=== PATIENT | female | born 1950 | race Two or more races ===

== ENCOUNTER 2017-12-10 09:52 | Emergency (ER) | payer MEDICARE, MEDICAID ==
[2017-12-10] MEDS: IPRATRPIUM/ALBUTEROL 0.5/2.5MG 3 ML NEBU. NEB ×2 (10:34)
[2017-12-10 10:42] LABS: ADD MAN DIFF? NO
[2017-12-10 10:46] LABS: BASO # 0.1 x10^3/uL (0.0-0.2); BASO % 1 % (0-3); EOS # 0.4 x10^3/uL (0.0-0.7); EOS % 4 % (0-3); HEMATOCRIT 41.2 % (36.0-47.0); HEMOGLOBIN 13.6 g/dL (12.0-15.5); LYMPH # 2.4 x10^3/uL (1.0-4.8); LYMPH % 26 % (24-48); MEAN CORPUSCULAR HEMOGLOBIN 30 pg (25-35); MEAN CORPUSCULAR HGB CONC 33 g/dL (31-37); MEAN CORPUSCULAR VOLUME 92 fL (79-100); MONO # 0.6 x10^3/uL (0.0-1.1); MONO % 7 % (0-9); NEUT # 5.9 x10^3uL (1.8-7.7); NEUT % 63 % (31-73); PLATELET COUNT 283 x10^3/uL (140-400); RED BLOOD COUNT 4.47 x10^6/uL (3.50-5.40); RED CELL DISTRIBUTION WIDTH 13.4 % (11.5-14.5); WHITE BLOOD COUNT 9.4 x10^3/uL (4.0-11.0)
[2017-12-10 11:04] LABS: INFLUENZA A PATIENT NEGATIVE (NEGATIVE); INFLUENZA B PATIENT NEGATIVE (NEGATIVE); OBC FLU VALID
[2017-12-10 11:09] LABS: ANION GAP 10 (6-14); BLOOD UREA NITROGEN 15 mg/dL (7-20); CALCIUM 9.3 mg/dL (8.5-10.1); CARBON DIOXIDE 25 mmol/L (21-32); CHLORIDE 108 mmol/L (98-107); CREATININE 0.6 mg/dL (0.6-1.0); GFR 99.1; GLUCOSE 84 mg/dL (70-99); POTASSIUM 4.1 mmol/L (3.5-5.1); SODIUM 143 mmol/L (136-145)
[2017-12-10 11:12] LABS: LIPASE 80 U/L (73-393)
[2017-12-10 11:17] LABS: TROPONINI < 0.017 ng/mL (0.000-0.055)
[2017-12-10 11:21] LABS: NT-PRO BNP 216 pg/mL (0-124)
[2017-12-10] MEDS: predniSONE 10 MG TABLET PO ×2 (12:31)
== END 2017-12-10 12:36 | disposition home or self-care (01) ==
LOC: ER 09:52
DX: R05 Cough (principal); R06.02 Shortness of breath; F41.9 Anxiety disorder, unspecified; E78.00 Pure hypercholesterolemia, unspecified; J44.9 Chronic obstructive pulmonary disease, unspecified; I10 Essential (primary) hypertension; Z90.710 Acquired absence of both cervix and uterus
CPT/HCPCS: 36415; 71045; 80048; 83690; 83880; 84484; 85025; 87804; 87804-59; 93005; 94640; 99285-25; J7512; J7620

== ENCOUNTER 2017-12-15 10:46 | Emergency (ER) | payer MEDICARE, MEDICAID | END 2017-12-15 11:20 | disposition home or self-care (01) | LOC: ER 10:46 | DX: B02.9 Zoster without complications (principal); J44.9 Chronic obstructive pulmonary disease, unspecified; E78.00 Pure hypercholesterolemia, unspecified; I10 Essential (primary) hypertension | CPT/HCPCS: 87252; 99283 ==

== ENCOUNTER → 2018-01-14 | Outpatient (CLI) | payer MEDICARE, MEDICAID | END | disposition home or self-care (01) | LOC: MAMMO 07:57 | DX: Z12.31 Encounter for screening mammogram for malignant neoplasm of breast (principal) | CPT/HCPCS: 77067 ==

== ENCOUNTER 2018-01-18 11:43 | Emergency (ER) | payer MEDICARE, MEDICAID ==
[2018-01-18] MEDS: IPRATRPIUM/ALBUTEROL 0.5/2.5MG 3 ML NEBU. NEB (12:10)
[2018-01-18 12:11] LABS: ADD MAN DIFF? NO
[2018-01-18 12:13] LABS: BASO # 0.1 x10^3/uL (0.0-0.2); BASO % 1 % (0-3); EOS # 0.5 x10^3/uL (0.0-0.7); EOS % 5 % (0-3); HEMOGLOBIN 13.5 g/dL (12.0-15.5); LYMPH # 2.4 x10^3/uL (1.0-4.8); LYMPH % 26 % (24-48); MEAN CORPUSCULAR HEMOGLOBIN 31 pg (25-35); MEAN CORPUSCULAR HGB CONC 34 g/dL (31-37); MEAN CORPUSCULAR VOLUME 91 fL (79-100); MONO # 0.6 x10^3/uL (0.0-1.1); MONO % 7 % (0-9); NEUT # 5.7 x10^3uL (1.8-7.7); NEUT % 62 % (31-73); PLATELET COUNT 343 x10^3/uL (140-400); RED CELL DISTRIBUTION WIDTH 13.2 % (11.5-14.5); WHITE BLOOD COUNT 9.2 x10^3/uL (4.0-11.0)
[2018-01-18 12:26] LABS: ANION GAP 9 (6-14); BLOOD UREA NITROGEN 15 mg/dL (7-20); BUN/CREATININE RATIO 21 (6-20); CALCIUM 9.1 mg/dL (8.5-10.1); CARBON DIOXIDE 27 mmol/L (21-32); CHLORIDE 105 mmol/L (98-107); CREATININE 0.7 mg/dL (0.6-1.0); GLUCOSE 105 mg/dL (70-99); POTASSIUM 4.1 mmol/L (3.5-5.1); SODIUM 141 mmol/L (136-145)
[2018-01-18 12:29] LABS: ALBUMIN 3.7 g/dL (3.4-5.0); ALK PHOS 80 U/L (46-116); ALT (SGPT) 27 U/L (14-59); AST (SGOT) 16 U/L (15-37); TOTAL BILIRUBIN 0.3 mg/dL (0.2-1.0); TOTAL PROTEIN 7.4 g/dL (6.4-8.2)
[2018-01-18 12:36] LABS: TROPONINI < 0.017 ng/mL (0.000-0.055)
[2018-01-18 12:36] LABS: CKMB INDEX 1.6 % (0-4); CKMB MASS 1.9 ng/mL (0.0-3.6); CREATINE KINASE 118 U/L (26-192)
[2018-01-18 13:01] LABS: BILIRUBIN,URINE NEGATIVE (NEG); CLARITY,URINE CLEAR; COLOR,URINE YELLOW; GLUCOSE,URINE NEGATIVE (NEG); NITRITE,URINE NEGATIVE (NEG); PH,URINE 5.5; PROTEIN,URINE NEGATIVE (NEG-TRACE); UROBILINOGEN,URINE 0.2 mg/dL (0.2 mg/dL)
[2018-01-18] MEDS: IV NORMAL SALINE 1000ML BAG 1,000 ML IV (13:02)
[2018-01-18] MEDS: methylPREDNISolone SOD SUCC PF 125 MG/2 ML VIAL. IV (13:03)
[2018-01-18 13:13] LABS: HYALINE CASTS, URINE FEW /HPF; SQUAMOUS EPITHELIAL CELL,UR MOD /LPF
[2018-01-18 13:14] LABS: BACTERIA,URINE MODERATE /HPF (0-FEW); RBC,URINE OCC /HPF (0-2)
[2018-01-18 13:19] LABS: INFLUENZA A PATIENT NEGATIVE (NEGATIVE); INFLUENZA B PATIENT NEGATIVE (NEGATIVE); OBC FLU VALID
[2018-01-18 13:29] LABS: LACTIC ACID 1.7 mmol/L (0.4-2.0)
== END 2018-01-18 14:37 | disposition home or self-care (01) ==
LOC: ER 11:43
DX: J45.41 Moderate persistent asthma with (acute) exacerbation (principal); J44.9 Chronic obstructive pulmonary disease, unspecified; I10 Essential (primary) hypertension; E78.00 Pure hypercholesterolemia, unspecified; Z90.710 Acquired absence of both cervix and uterus
CPT/HCPCS: 36415; 71045; 80053; 81001; 82553; 83605; 84484; 85025; 87040; 87086; 87804; 87804-59; 93005; 94640; 96361; 96374; 99285-25; J2930; J7030; J7620

== ENCOUNTER 2018-01-27 00:41 | Inpatient (IN) | payer MEDICARE, MEDICAID ==
[2018-01-27] MEDS ORDERED: methylPREDNISolone SOD SUCC PF 125 MG/2 ML VIAL. (00:59)
[2018-01-27] MEDS: IPRATRPIUM/ALBUTEROL 0.5/2.5MG 3 ML NEBU. NEB ×5 (01:00→19:26)
[2018-01-27] MEDS: methylPREDNISolone SOD SUCC PF 125 MG/2 ML VIAL. IV (01:08)
[2018-01-27 01:20] LABS: BASO % 0 % (0-3); EOS % 0 % (0-3); HEMATOCRIT 41.6 % (36.0-47.0); HEMOGLOBIN 13.5 g/dL (12.0-15.5); LYMPH # 0.8 x10^3/uL (1.0-4.8); LYMPH % 4 % (24-48); MEAN CORPUSCULAR HEMOGLOBIN 30 pg (25-35); MEAN CORPUSCULAR HGB CONC 33 g/dL (31-37); MEAN CORPUSCULAR VOLUME 93 fL (79-100); MONO # 0.3 x10^3/uL (0.0-1.1); MONO % 1 % (0-9); NEUT # 18.2 x10^3uL (1.8-7.7); NEUT % 94 % (31-73); PLATELET COUNT 339 x10^3/uL (140-400); RED BLOOD COUNT 4.49 x10^6/uL (3.50-5.40); RED CELL DISTRIBUTION WIDTH 14.2 % (11.5-14.5); WHITE BLOOD COUNT 19.3 x10^3/uL (4.0-11.0)
[2018-01-27] MEDS: IV NORMAL SALINE 1000ML BAG 1,000 ML IV ×7 (01:20→05:21)
[2018-01-27 01:23] LABS: ADD MAN DIFF? YES
[2018-01-27 01:31] LABS: ANION GAP 13 (6-14); BLOOD UREA NITROGEN 14 mg/dL (7-20); CARBON DIOXIDE 24 mmol/L (21-32); CHLORIDE 106 mmol/L (98-107); CREATININE 0.8 mg/dL (0.6-1.0); GFR 71.1; GLUCOSE 175 mg/dL (70-99); POTASSIUM 3.9 mmol/L (3.5-5.1); SODIUM 143 mmol/L (136-145)
[2018-01-27 01:41] LABS: TROPONINI < 0.017 ng/mL (0.000-0.055)
[2018-01-27] MEDS ORDERED: ONDANSETRON PF 4 MG/2 ML VIAL. IV (03:45)
[2018-01-27 04:10] LABS: LACTIC ACID 3.1 mmol/L (0.4-2.0)
[2018-01-27 04:45] LABS: % BANDS 1 % (0-9); % LYMPHS 12 % (24-48); % SEGS 87 % (35-66); PLT ESTIMATE ADEQUATE (ADEQUATE)
[2018-01-27] MEDS: AZITHRMYCN 500MG IVPB FOR OMNI 250 ML IV (05:21)
[2018-01-27 05:23] LABS: LACTIC ACID 4.8 mmol/L (0.4-2.0)
[2018-01-27 08:13] LABS: TROPONINI < 0.017 ng/mL (0.000-0.055)
[2018-01-27 10:08] LABS: TROPONINI < 0.017 ng/mL (0.000-0.055)
[2018-01-27] MEDS: ALBUTEROL SULFATE 2.5 MG/3 ML NEBU. NEB (12:22)
[2018-01-27] MEDS ORDERED: NON FORMULARY ITEM (Albuterol Sulfate (Proair Hfa Inhaler) 1 PUFF) INH (12:45)
[2018-01-27] MEDS ORDERED: IBUPROFEN 800 MG TABLET. PO (12:45)
[2018-01-27] MEDS ORDERED: NON FORMULARY ITEM (Albuterol Sulfate (Albuterol Sulfate Neb Soln) 0.63 MG) NEB (12:45)
[2018-01-27] MEDS: ASPIRIN 325 MG TABLET PO (13:27)
[2018-01-27] MEDS: ATENOLOL 50 MG TABLET. PO (13:28)
[2018-01-27] MEDS: LISINOPRIL 20 MG TABLET PO (13:29)
[2018-01-27] MEDS: ESTRADIOL 1 MG TABLET. PO (13:29)
[2018-01-27] MEDS: LACTOBACILLUS RHAMNOSUS GG 1 CAPSULE. PO ×2 (13:29→20:56)
[2018-01-27] MEDS: OMEGA-3 FATTY ACIDS/FISH OIL 1,000 MG CAPSULE. PO (13:29)
[2018-01-27] MEDS: amLODIPine BESYLATE 10 MG TABLET PO (13:29)
[2018-01-27] MEDS: ACETAMINOPHEN 325 MG TABLET. PO (13:31)
[2018-01-27] MEDS: ALPRAZolam 0.5 MG TABLET PO (13:32)
[2018-01-27] MEDS: ZOLPIDEM 5 MG TABLET. PO (20:56)
[2018-01-27] MEDS: SIMVASTATIN 20 MG TABLET PO (20:56)
[2018-01-28 03:29] LABS: ADD MAN DIFF? NO
[2018-01-28 03:37] LABS: BASO % 0 % (0-3); EOS # 0.1 x10^3/uL (0.0-0.7); EOS % 1 % (0-3); HEMATOCRIT 35.8 % (36.0-47.0); HEMOGLOBIN 11.5 g/dL (12.0-15.5); LYMPH # 2.7 x10^3/uL (1.0-4.8); LYMPH % 14 % (24-48); MEAN CORPUSCULAR HEMOGLOBIN 30 pg (25-35); MEAN CORPUSCULAR HGB CONC 32 g/dL (31-37); MEAN CORPUSCULAR VOLUME 93 fL (79-100); MONO # 1.3 x10^3/uL (0.0-1.1); MONO % 7 % (0-9); NEUT # 14.9 x10^3uL (1.8-7.7); NEUT % 79 % (31-73); PLATELET COUNT 278 x10^3/uL (140-400); RED BLOOD COUNT 3.85 x10^6/uL (3.50-5.40); RED CELL DISTRIBUTION WIDTH 13.8 % (11.5-14.5)
[2018-01-28 03:45] LABS: ANION GAP 7 (6-14); BLOOD UREA NITROGEN 15 mg/dL (7-20); CALCIUM 8.4 mg/dL (8.5-10.1); CARBON DIOXIDE 27 mmol/L (21-32); CHLORIDE 108 mmol/L (98-107); CREATININE 0.7 mg/dL (0.6-1.0); GLUCOSE 99 mg/dL (70-99); POTASSIUM 3.7 mmol/L (3.5-5.1); SODIUM 142 mmol/L (136-145)
[2018-01-28] MEDS: methylPREDNISolone SOD SUCC PF 125 MG/2 ML VIAL. IV (05:10)
[2018-01-28] MEDS: cefTRIAXone IV Push 1 GM VIAL. IVP (05:42)
[2018-01-28] MEDS: AZITHROMYCIN 250 MG in IV NORMAL SALINE 250ML 250 ML IV (06:05)
[2018-01-28] MEDS: IPRATRPIUM/ALBUTEROL 0.5/2.5MG 3 ML NEBU. NEB ×2 (07:26→11:47)
[2018-01-28 07:48] LABS: LACTIC ACID 2.3 mmol/L (0.4-2.0)
[2018-01-28] MEDS: ASPIRIN 325 MG TABLET PO (09:00)
[2018-01-28] MEDS: LACTOBACILLUS RHAMNOSUS GG 1 CAPSULE. PO (09:00)
[2018-01-28] MEDS: ESTRADIOL 1 MG TABLET. PO (09:00)
[2018-01-28] MEDS: OMEGA-3 FATTY ACIDS/FISH OIL 1,000 MG CAPSULE. PO (09:00)
[2018-01-28] MEDS: amLODIPine BESYLATE 10 MG TABLET PO (09:02)
[2018-01-28] MEDS: LISINOPRIL 20 MG TABLET PO (09:03)
[2018-01-28] MEDS: ATENOLOL 50 MG TABLET. PO (09:03)
== END 2018-01-28 14:38 | disposition home or self-care (01) | DRG 871 ==
LOC: ER 00:41 → 5 NORTH 03:51
DX: A41.9 Sepsis, unspecified organism (principal); J18.9 Pneumonia, unspecified organism; J44.0 Chronic obstructive pulmonary disease with (acute) lower respiratory infection; J44.1 Chronic obstructive pulmonary disease with (acute) exacerbation; J45.901 Unspecified asthma with (acute) exacerbation; J20.9 Acute bronchitis, unspecified; E78.5 Hyperlipidemia, unspecified; F41.9 Anxiety disorder, unspecified; G47.00 Insomnia, unspecified; I10 Essential (primary) hypertension; Z83.3 Family history of diabetes mellitus; Z90.710 Acquired absence of both cervix and uterus; Z96.651 Presence of right artificial knee joint; H26.9 Unspecified cataract; M19.90 Unspecified osteoarthritis, unspecified site; E78.00 Pure hypercholesterolemia, unspecified; Z87.891 Personal history of nicotine dependence
CPT/HCPCS: 36415; 71045; 80048; 83605; 84484; 85007; 85025; 87040; 93005; 94618; 94640; 96374; 99285; 99285-25; J0456; J0690; J0696; J2930; J7030; J7050; J7613; J7620